=== PATIENT | female | born 1960 | race African-American/Black ===

== ENCOUNTER 2018-11-02 14:18 | Inpatient (IN) ==
[2018-11-02 16:16] LABS: BASO# 0.02 X1000 (0.0-0.2); BASO% 0.2 % (0.0-0.8); EOS# 0.01 X1000 (0.0-0.7); EOS% 0.1 % (0.0-10.0); HEMATOCRIT 33.7 % (37.0-47.0); HEMOGLOBIN 10.8 g/dL (12.0-16.0); IMM GRAN# 0.04 X1000 (0.0-0.04); IMM GRAN% 0.3 % (0.0-0.5); LYMPH# 0.29 X1000 (1.2-3.4); LYMPH% 2.4 % (20.5-51.1); MCH 28.1 PG (27-31); MCV 87.8 FL (81-99); MONO# 0.36 X1000 (0.11-0.59); NEUT# 11.39 X1000 (1.4-6.5); PLT 210 X1000 (130-400); RBC 3.84 XMIL (4.2-5.4); RDW 13.4 % (11.5-14.5); WBC 12.11 X1000 (4.8-10.8)
[2018-11-02 16:36] LABS: ALB/GLOB RATIO 1.6; ALBUMIN 4.4 g/dL (3.5-5.0); CALCIUM 10.5 mg/dL (8.8-10.2); CREATININE 3.9 mg/dL (0.5-0.9); MAGNESIUM 2.3 mg/dL (1.5-2.7); PHOSPHORUS 1.7 mg/dL (2.7-4.5); POTASSIUM 3.4 mmol/L (3.5-5.1); TOTAL BILIRUBIN 0.43 mg/dL (0.20-1.00); TOTAL PROTEIN 7.2 g/dL (6.3-8.3)
[2018-11-02 16:38] LABS: ANISOCYTOSIS OCCASIONAL; BANDS 4 % (0-1); LYMPHS 4 % (21-51); MONO 3 % (1-9); SEGS 89 % (42-75)
[2018-11-02] MEDS ORDERED: D50W SYRINGE IV ONE (16:41)
[2018-11-02] MEDS ORDERED: POTASSIUM PHOSPHATE 30 MMOL in NS 250 ML IV ONE (16:42)
[2018-11-02] MEDS ORDERED: ZOFRAN IV PRN (17:28)
[2018-11-02] MEDS ORDERED: TYLENOL PO PRN (17:28)
[2018-11-02] MEDS ORDERED: D50W SYRINGE IV PRN (17:28)
[2018-11-02] MEDS ORDERED: APRESOLINE PO ONE (17:30)
--- NOTE | 2018-11-02 17:53 | HISTORY AND PHYSICAL ---
Ms. Santos presented because for the last week really she has had cramping in her feet and her hands and became very painful and drawing her fingers back and her toes back. She has had this before. I think it was associated with electrolyte abnormalities. PAST MEDICAL HISTORY: 1. She was end-stage renal disease on hemodialysis and she has undergone renal transplant. 2. Chronic diastolic congestive heart failure. 3. Diabetes mellitus type 2. 4. Obesity. 5. Dyslipidemia. 6. Hypertension. 7. Chronic anemia. PAST SURGICAL HISTORY: 1. Cholecystectomy. 2. Incisional hernia repair. 3. Left brachiocephalic AV fistula construction with placement of a left IJ tunneled dialysis catheter. 4. Thrombectomy of the left brachiocephalic fistula. 5. Construction of right brachiocephalic AV fistula. 6. Construction of left forearm loop AV graft. 7. Left forearm AV graft thrombectomy. 8. Another construction of left upper arm AV graft. 9. Left axillary and femoral vein bypass. 10. Renal transplant. SOCIAL HISTORY: Denies tobacco, ethanol, illicit drugs. FAMILY HISTORY: Positive for diabetes mellitus. REVIEW OF SYSTEMS: She does not report any fever, chills, or recent trauma. No change in visual or hearing acuity.Respiratory: No increased work of breathing or dyspnea. Cardiovascular: No chest pain or tachy palpitation. No neck pain or cervical adenopathy. GI/: No gross hematochezia or hematuria. Musculoskeletal/Neurologic: No focal complaints other than just symmetrical muscle spasm. EXAM: Temperature 98 degrees, pulse 94, respirations 21, blood pressure 204/ 80. Her pupils were equal. She is awake, alert, oriented x3, very pleasant. Appears to be comfortable at the present time. No distended neck veins. I did not appreciate any cervical or supraclavicular adenopathy. Neck was supple. Carotid, radial and femoral pulses 2+ and symmetrical.Cardiovascular: Regular rhythm and rate without murmur or S3. Abdomen: Soft. Skin: Warm and dry. Weight 215 pounds, height 5 feet 6 inches. No pedal edema and she does not feel like she is having much swelling. LAB: White count 12,110, hematocrit 33, platelet count 210,000. Sodium 140, potassium 3.4, chloride 98, BUN 69, creatinine 3.9, blood sugar 40, calcium 10.5, phosphorus was 1.7, magnesium is 2.3, alkaline phos 99, albumin was 4.4, TSH is 3.8. Review of her medicines she is on amlodipine, B complex, PhosLo 667. Note the calcium was high at 10.5. Albumin though is normal. ASSESSMENT AND PLAN: 1. Muscle cramps with low phosphorus, low potassium. She does have underlying chronic kidney disease. Her creatinine on 04/21/2018 was 4 so it is actually not worse than in March but back in August 2017 was 1.1. We going to give her some K-Phos, I think we should be okay to give her 30 mEq of K-Phos and hopefully that is going to help her irritation in her muscles. We are going to have to watch her potassium and magnesium given her renal insufficiency. Will ask Dr. Zhong to kind of assist with this because her renal function we need to follow closely as well. She says she is making good urine output. The calcium is slightly high but I do not think like that is something we need to treat at this time. She is on PhosLo already. 2. Chronic kidney disease status post renal transplant. 3. Hypertension, blood pressure seems to be accelerated so we will give her some p.r.n. medicines to see if we can help with her blood pressure. I think will use hydralazine she is taking that already 25 mg t.i.d. p.r.n. I think we will go up on her hydralazine to see if we can do 50 mg t.i.d. and see if that will help. 4. Diabetes mellitus type 2. Will check pattern sugar, sliding scale. 5. Obesity. 6. Dyslipidemia. 7. She has a history of diastolic dysfunction aware. Looking back her echocardiogram that was done on 07/15/2012 at that time ejection fraction 30-40%, there was subtle hypokinesis of the anterior wall and it may be worth checking another echocardiogram on her just to look at her left ventricular function. We will consult Dr. Zhong to help. I think for the muscle cramps I think she could try some Flexeril as well which should be 10 mg p.o. q.6 hours p.r.n. muscle cramps. cc: Patrick Turner MD [facility]ITALDmitry
--- NOTE | 2018-11-02 17:58 | DISCHARGE SUMMARY ---
ADMISSION DATE: 11/02/2018 DISCHARGE DATE: ADDENDUM: Note that blood sugar was in the 40s and she did take her insulin this morning so we will watch her sugars pretty carefully but this may play a role also in muscle irritation. cc: Patrick Turner MD
--- NOTE | 2018-11-02 18:22 | Diag Imaging Result Doc PS360 ---
EXAM: CHEST-2 VIEWS 11/02/2018 HISTORY: sepsis TECHNIQUE: AP and lateral chest COMMENT: The left hemidiaphragm is elevated and there is atelectasis or fibrosis over the left base. Compared to the previous examination of 07/15/2012 the alveolar opacity which was previously present in the right lower lobe has resolved. The heart size is within normal limits. There are numerous surgical clips in the left axillary region and there is a stent in what appears to be the left innominate vein. IMPRESSION: Minimal atelectatic change. Electronically signed by Kendall Arias 11/02/2018 6:20 PM
[2018-11-02] MEDS: FLEXERIL PO PRN (19:35)
[2018-11-02] MEDS: NORCO-7.5 PO PRN (20:52)
[2018-11-02 21:08] LABS: URINE SOURCE CLEAN CATCH
[2018-11-02 21:15] LABS: BILIRUBIN URINE NEGATIVE (NEGATIVE); BLOOD URINE SMALL (NEGATIVE); COLOR STRAW; GLUCOSE URINE NEGATIVE (NEGATIVE); KETONE URINE NEGATIVE (NEGATIVE); LEUKOCYTES URINE NEGATIVE (NEGATIVE); NITRITE URINE NEGATIVE (NEGATIVE); PROTEIN URINE 30 mg/dL (NEGATIVE); TURBIDITY URINE CLEAR (CLEAR); UROBILINOGEN URINE NORMAL (NORMAL)
[2018-11-02 21:16] LABS: UR EPITHELIAL CELLS <10 /HPF (<10); URINE BACTERIA NEGATIVE /HPF; URINE RBC <10 /HPF (<10); URINE WBC <10 /HPF (<10)
[2018-11-02] MEDS: HEPARIN SUBQ SCH (21:42)
[2018-11-02] MEDS: HUMULIN R SUBQ SCH (21:42)
[2018-11-03] MEDS: HUMULIN R SUBQ SCH ×6 (01:03→20:45)
[2018-11-03] MEDS: NORCO-7.5 PO PRN ×3 (01:03→20:44)
[2018-11-03] MEDS ORDERED: APRESOLINE IV PRN (02:13)
[2018-11-03 05:42] LABS: BASO# 0.01 X1000 (0.0-0.2); BASO% 0.1 % (0.0-0.8); EOS# 0.03 X1000 (0.0-0.7); EOS% 0.3 % (0.0-10.0); HEMATOCRIT 31.5 % (37.0-47.0); HEMOGLOBIN 10.4 g/dL (12.0-16.0); IMM GRAN# 0.02 X1000 (0.0-0.04); IMM GRAN% 0.2 % (0.0-0.5); LYMPH# 0.63 X1000 (1.2-3.4); LYMPH% 6.7 % (20.5-51.1); MCH 28.6 PG (27-31); MCV 86.5 FL (81-99); MONO# 0.42 X1000 (0.11-0.59); MONO% 4.4 % (1.7-9.3); MPV 11.6 FL (7.4-10.4); NEUT# 8.33 X1000 (1.4-6.5); NEUT% 88.3 % (42.2-75.2); PLT 239 X1000 (130-400); RBC 3.64 XMIL (4.2-5.4); RDW 13.3 % (11.5-14.5); WBC 9.44 X1000 (4.8-10.8)
[2018-11-03 05:49] LABS: INR 0.89; PROTIME 12.8 Seconds (11.0-16.0); PTT 31.1 Seconds (22.3-41.8)
[2018-11-03 05:52] LABS: POTASSIUM 3.7 mmol/L (3.5-5.1)
[2018-11-03 05:53] LABS: ALB/GLOB RATIO 1.4; ALBUMIN 3.9 g/dL (3.5-5.0); CALCIUM 9.5 mg/dL (8.8-10.2); CREATININE 3.4 mg/dL (0.5-0.9); MAGNESIUM 2.1 mg/dL (1.5-2.7); PHOSPHORUS 3.8 mg/dL (2.7-4.5); TOTAL BILIRUBIN 0.4 mg/dL (0.20-1.00); TOTAL PROTEIN 6.7 g/dL (6.3-8.3)
[2018-11-03 06:38] LABS: FREE T4 1.16 ng/dL (0.93-1.70); TSH 1.24 uIUmL (0.27-4.20)
[2018-11-03] MEDS ORDERED: POTASSIUM PHOSPHATE 30 MEQ in NS 250 ML IV ONE (07:52)
[2018-11-03 08:03] LABS: BANDS 2 % (0-1); EOS 2 % (1-10); LYMPHS 10 % (21-51); MONO 4 % (1-9); SEGS 82 % (42-75)
--- NOTE | 2018-11-03 08:12 | PROGRESS NOTE ---
DATE: 11/03/2018 SUBJECTIVE: Ms. Santos states she feels a little better. The cramping is less but still getting cramping in her hands and feet. She did get some good sleep. Her sugars have been going from high to low. She did not eat much yesterday but no complaints of pain. No abdominal cramping. PHYSICAL EXAMINATION: Vital Signs: Temperature 98.8 degrees, pulse 76, respirations 18, blood pressure 144/58. HEENT: Pupils are equal. Neck: No distended neck veins. Lungs: Clear anterolateral. Cardiovascular Examination: Regular rhythm and rate without murmur or S3. Abdomen: Soft. Skin: Warm and dry. Is and Os: Urine output was 2800 mL. LAB: From this morning, white count 9444, hematocrit 31, hemoglobin 10, platelet count 231,000. Sodium 139, potassium 3.7, chloride 99, BUN 62, creatinine is 3.4. It is down from 3.9. Blood sugars been 125, 190, and 349. I guess this morning, they were low. ASSESSMENT AND PLAN: 1. Muscle cramps. She presented with a low phosphorus. Her phosphorus level and potassium were a little bit low. We will see if we can give her a little more K-Phos today. Folate was 6.7 so we will give her some folic acid. 2. Status post renal transplant. She has chronic kidney disease. Creatinine appears to have improved a little bit. 3. Hypertension. We will watch her blood pressure trend. 4. Diabetes mellitus type 2. We will watch her pattern of sugars. She is on a sliding scale right now. 5. She is taking Apresoline 50 mg 3 times a day. We will see how that does with her blood pressure. cc: Patrick Turner MD
[2018-11-03] MEDS: APRESOLINE PO SCH ×3 (08:55→17:19)
[2018-11-03] MEDS: HEPARIN SUBQ SCH ×2 (08:55→20:46)
[2018-11-03] MEDS ORDERED: FOLIC ACID PO SCH (09:00)
[2018-11-03] MEDS: FLEXERIL PO PRN (09:43)
[2018-11-03] MEDS ORDERED: BLISTEX MEDICATED BERRY LIP BALM TOP PRN (20:39)
[2018-11-04 05:55] LABS: ALB/GLOB RATIO 1.3; ALBUMIN 3.5 g/dL (3.5-5.0); CALCIUM 9.5 mg/dL (8.8-10.2); CREATININE 3.4 mg/dL (0.5-0.9); MAGNESIUM 2.2 mg/dL (1.5-2.7); PHOSPHORUS 4.9 mg/dL (2.7-4.5); POTASSIUM 4.2 mmol/L (3.5-5.1); TOTAL BILIRUBIN 0.35 mg/dL (0.20-1.00); TOTAL PROTEIN 6.3 g/dL (6.3-8.3)
[2018-11-04] MEDS: HUMULIN R SUBQ SCH (06:11)
--- NOTE | 2018-11-04 09:00 | DISCHARGE SUMMARY ---
ADMISSION DATE: 11/02/2018 DISCHARGE DATE: 11/04/2018 HISTORY AND HOSPITAL COURSE: This is a 57-year-old who presented with severe cramping in her hands and feet. This was her main concern, very painful, fingers drawn back. Her phosphorus was low and her potassium was low, and so these electrolytes were supplemented. She seemed to improve and felt she was ready go home on 05/14/2019. PAST MEDICAL HISTORY: 1. End-stage renal disease, on hemodialysis and then she underwent a renal transplant, and it seems to be doing well from that aspect. She does have some chronic renal insufficiency. 2. Chronic diastolic congestive heart failure. 3. Diabetes mellitus type 2. 4. Obesity. 5. Dyslipidemia. 6. Hypertension. 7. Chronic anemia. PAST SURGICAL HISTORY: 1. Status post cholecystectomy. 2. Incisional hernia repair. 3. Left brachiocephalic AV fistula construction with placement of a left IJ tunneled dialysis catheter. 4. Thrombectomy of the left brachiocephalic fistula. 5. Construction of right brachiocephalic AV fistula. 6. Construction of left forearm loop AV graft. 7. Left forearm AV graft thrombectomy. 8. Another construction of left upper arm AV graft. 9. Left axillary femoral vein bypass. 10. Renal transplant. LABORATORY DATA: Phosphorus on presentation was 1.7, the following day 3.8. I gave her a little bit more K-Phos. Her electrolytes on the day of discharge are sodium 142, potassium 4.2, chloride 105, BUN 55, creatinine 3.4. Note, the creatinine was 3.9 when she came in. Blood sugar was also running low and so we made some adjustments with her medications. DISCHARGE MEDICATIONS: She can take Flexeril p.r.n. 10 mg for muscle cramps. Apresoline 50 mg t.i.d. She is on PhosLo, which was 667 mg p.o. t.i.d., getting folic acid and vitamin B complex, and then Lantus insulin 22 units b.i.d. Will cut that down to 10 mg b.i.d. She is on insulin lispro 8 units twice a day and magnesium oxide 400 mg daily p.r.n., Zocor 20 mg a day, Januvia 50 mg a day, Norvasc 5 mg a day, and B complex with vitamin C 1 a day. cc: Patrick Turner MD
[2018-11-04] MEDS: APRESOLINE PO SCH (09:42)
[2018-11-04 09:46] VITALS: BP 141/62
[2018-11-04] MEDS: HEPARIN SUBQ SCH (09:59)
--- NOTE | 2018-11-04 13:43 | NEPHROLOGY CONSULTATION ---
DATE: 11/04/2018 REASON FOR ADMISSION: Cramping in her feet up into her hands and upper thighs. CONSULTING PHYSICIAN: Patrick Turner MD HISTORY OF PRESENT ILLNESS: Ms. Santos is a 57-year-old female who is known to our outpatient services, who has a renal transplant with partial failure. Her baseline creatinine when last seen in our office was 3.4, as high as 4.5. The patient stated that she was her usual self until approximately 2 to 3 days ago. She started with cramping that started in her toes and her feet. These proceeded to go up her legs to where her fingers and toes were drawn up. She could hardly walk. It was felt that this was associated with a low phosphorus level. Subsequently, the patient was hospitalized. She has received K-Phos. Her phosphorus level was 1.7 with a magnesium of 2.3 and an alkaline phosphatase of 99 upon admission. Her labs are improved today. The patient is feeling much better upon evaluation. She continues on her routine medications. After discussion with Dr. Turner, he is planning for discharge. We will plan with follow up in our office. PAST MEDICAL HISTORY: 1. End-stage renal disease with previous hemodialysis. She has undergone a renal transplant, followed at [facility] for acute kidney injury and failed transplant. 2. Chronic diastolic congestive heart failure. 3. Diabetes mellitus type 2. 4. Obesity. 5. Dyslipidemia. 6. Hypertension. 7. Chronic anemia. 8. Chronic pain. PAST SURGICAL HISTORY: Cholecystectomy, incisional hernia repair, left brachiocephalic AV fistula construction. She has had previous tunnel dialysis catheters, thrombectomy of the left brachiocephalic fistula, construction of a right brachiocephalic AV fistula, construction of left forearm loop AV graft, left forearm AV graft thrombectomy, left axillary femoral vein bypass, construction of left upper arm AV graft, and renal transplant, followed at [facility]. SOCIAL HISTORY: She denies any tobacco, alcohol, or illicit drug use. FAMILY HISTORY: Positive for diabetes and heart disease. ALLERGIES: Listed as no known drug allergies. HOME MEDICATIONS: Reviewed. REVIEW OF SYSTEMS: The patient denies any fever or chills. No nausea or vomiting. No diarrhea. No increased lower extremity swelling. No hematochezia, hemoptysis, or hematuria. No abdominal discomfort. No pain. No focal complaints. VITAL SIGNS: Her most recent vital signs show temperature 98.5 degrees, blood pressure 104/72, heart rate 75, respirations 18. She is on room air. Last recorded saturation 100%. She has had 930 in, 3100 out to void. LABORATORY DATA: Sodium 142, potassium 4.2, chloride 105, CO2 20, BUN 55, creatinine 3.4, glucose 180, anion gap 17, calcium 9.5, phosphorus 4.9, albumin 3.5. White count 9.44, hemoglobin 10.4, hematocrit 31.5, platelet count 239,000. PHYSICAL EXAMINATION: General: This is a 57-year-old female resting quietly in bed. She is in no acute distress. Skin: Warm and dry. HEENT: Normocephalic , atraumatic. Conjunctivae pale pink. She has DOROTEO. Mucous membranes dry. Neck: Supple. Trachea midline. No JVD. Cardiovascular: She is regular rate and rhythm. She has an S4. Lungs : Clear to auscultation bilaterally. Equal excursion on room air. Abdomen: Soft, nontender. Palpable donor kidney to the right lower quadrant, nontender. Positive bowel sounds. Genitourinary: Not inspected. The patient has been up to void, to the bathroom. Extremities: No edema. No clubbing or cyanosis. ASSESSMENT AND PLAN: 1. Chronic kidney disease stage 3B, status post renal transplant. Patient remains at her baseline creatinine of 3.4. Adequate urine out. No indications for intervention. 2. Electrolytes. The patient had a low phosphorus and low potassium. She was treated with K- Phos. These are currently at acceptable level. 3. Acid-base balance. This is acceptable. 4. Anemia. This is acceptable. 5. Hypertension. This is acceptable. PLAN: Follow up in our office with labs on discharge. I would like to thank you for allowing us to follow with this patient. Dictated by ANAYA Hoff for Chris Zhong MD Face to face encounter, data reviewed, discussed with Triny Magana on 11/04/18. I agree with the above assessment and plan of care. cc: ANAYA Hoff MD [facility]
== END 2018-11-04 11:19 | disposition home or self-care (01) | DRG 642 ==
LOC: SUPCPDRO → ED 14:18 → EDIPHOLD 20:56 → 3S 23:51
PROVIDERS: ATTEND Emergency Medicine
CPT/HCPCS: 71020; 71046; 80053; 81001; 82550; 82607; 82746; 82948; 83605; 83735; 84100; 84439; 84443; 85025; 85610; 85730; 87040; A9270; J0360; J1644; J7050; XXXXX